=== PATIENT | female | born 1990 | race Caucasian/White ===

== ENCOUNTER 2016-10-29 08:37 | Emergency (ER) | payer BC ==
[~2016-10-29] VITALS: Ht 154.9 cm; Wt 59.0 kg
[2016-10-29] MEDS ORDERED: IV NORMAL SALINE 1000 ML BAG IV ONE (08:45)
--- NOTE | 2016-10-29 08:50 | NUR ---
DR VALLE AT THE BEDSIDE FOR EVAL AND EXAM.
[2016-10-29 09:02] LABS: BASOPHILS # (AUTO) 0.1 K/uL (0.0-8.0); BASOPHILS % (AUTO) 0.6 % (0.0-2.0); EOSINOPHILS # (AUTO) 0.4 K/uL (0.0-0.7); EOSINOPHILS % (AUTO) 3.4 % (0.0-7.0); HEMATOCRIT 45.6 % (37-47); HEMOGLOBIN 15.6 G/DL (12.0-16.0); LYMPHOCYTES # (AUTO) 4.5 K/UL (0.8-4.8); LYMPHOCYTES % (AUTO) 43.6 % (20.5-51.5); MEAN CORPUSCULAR HEMOGLOBIN 30.6 UUG (27.0-31.0); MEAN CORPUSCULAR HGB CONC 34 g/dL (32.0-37.0); MEAN CORPUSCULAR VOLUME 89.1 FL (81.0-99.0); MONOCYTES # (AUTO) 0.7 K/UL (0.1-1.30); MONOCYTES % (AUTO) 7.1 % (0.0-11.0); NEUTROPHILS # (AUTO) 4.7 K/UL (1.8-8.9); NEUTROPHILS % (AUTO) 45.3 % (38.5-71.5); PLATELET COUNT (AUTO) 258 K/UL (150-450); RED BLOOD CELL COUNT(AUTO) 5.11 MIL/UL (4.2-5.4); WHITE BLOOD COUNT (AUTO) 10.4 K/UL (4.0-11.2)
[2016-10-29 09:05] LABS: CREATININE 1.1 mg/dL (0.6-1.3); POTASSIUM 3.9 mmol/L (3.5-5.1)
[2016-10-29 09:37] VITALS: BP 113/59
--- NOTE | 2016-10-29 09:43 | NUR ---
Patient discharged to home in stable conditon. Written and verbal after care instructions given. Patient verbalizes understanding of instructions.
== END 2016-10-29 09:44 | disposition home or self-care (01) ==
LOC: ER 08:37
DX: R55 Syncope and collapse (principal); R79.89 Other specified abnormal findings of blood chemistry; R10.33 Periumbilical pain
CPT/HCPCS: 36415; 84703; 85025; 93005; A4663; J7030